=== PATIENT | male | born 1940 | race Caucasian/White ===

== ENCOUNTER → 2025-05-13 13:43 | Outpatient (REF) | payer MEDICARE, SELFPAY | LOC: RAD 13:43 | PROVIDERS: ATTENDING PHYSICIAN Specialist; FAMILY PHYSICIAN Family Medicine | DX: R31.0 Gross hematuria (principal) | CPT/HCPCS: 74178; Q9967 ==

== ENCOUNTER → 2025-06-17 08:07 | Outpatient (REF) | payer MEDICARE, SELFPAY ==
[2025-06-17 09:00] LABS: Hematocrit 41.1 % (39.0-52.0); Hemoglobin 13.2 g/dL (13.0-18.0); Mean Corp Hgb Conc. 32.1 g/dL (33.0-37.0); Mean Corpuscular Volume 84.4 fL (80.0-94.0); Platelet Count 246 10^3/uL (130-400); Red Cell Dist. Width 13.5 % (11.5-14.5)
[2025-06-17 09:24] LABS: Blood Urea Nitrogen 21 mg/dl (9-20); Calcium 9.0 mg/dl (8.4-10.2); Carbon Dioxide 27 mmol/L (22-30); Chloride 107 mmol/L (98-107); Glucose 107 mg/dl (70-99); Potassium 4.4 mmol/L (3.5-5.1); Sodium 139 mmol/L (135-145); eGFR > 60.00
== END ==
LOC: SDSPAT 08:07
PROVIDERS: ATTENDING PHYSICIAN Specialist; FAMILY PHYSICIAN Family Medicine
DX: Z01.818 Encounter for other preprocedural examination (principal)
CPT/HCPCS: 80048; 85027; 93005

== ENCOUNTER 2025-06-19 06:40 | Day surgery (SDC) | payer MEDICARE, SELFPAY ==
[2025-06-17 14:03] VITALS: BMI 21.0
[2025-06-19] VITALS (7 sets, daily range): BP systolic 102–145; BP diastolic 64–82; BMI 21.0
[2025-06-19] MEDS: NORMOSOL-R/PLASMALYTE-A 1000 IV (12:33)
== END 2025-06-19 16:18 | disposition home or self-care (01) ==
LOC: SDS 06:40
PROVIDERS: ATTENDING PHYSICIAN Specialist; FAMILY PHYSICIAN Family Medicine
DX: D41.4 Neoplasm of uncertain behavior of bladder (principal); N32.9 Bladder disorder, unspecified
CPT/HCPCS: 52234; 88307; 88341; 88342